=== PATIENT | female | born 1990 | race Caucasian/White ===

== ENCOUNTER 2018-10-20 07:49 | Emergency (ER) | payer OTHER ==
[2018-10-20] MEDS ORDERED: NA CHLORIDE 0.9% 1,000 ML ONE (08:47)
[2018-10-20 08:52] LABS: Absolute Lymphocytes (CBC) 1.7 K/uL (0.7-4.9); Basophils % 0.5 % (0-1.3); Eosinophils % 4.2 % (0-4.4); Hematocrit 39.2 % (36.0-45.0); Lymphocytes % 23.2 % (15.3-44.8); MPV 9.1 fL (7.6-11.3); Monocytes % 4.9 % (3.3-12.3); RBC Red Blood Cell Count 4.44 M/uL (3.86-4.86)
[2018-10-20] MEDS ORDERED: FENTANYL CITR 100 MCG/2 ML ONE (08:53)
[2018-10-20 09:05] LABS: ALT/SGPT 33 U/L (12-78); AST/SGOT 22 U/L (15-37); Albumin 3.7 g/dL (3.4-5.0); Alkaline Phosphatase 89 U/L (45-117); BUN Blood Urea Nitrogen 15 mg/dL (7-18); Bicarbonate 25 mmol/L (21-32); Bilirubin Direct < 0.1 mg/dL (0-0.2); Bilirubin Total 0.2 mg/dL (0.2-1.0); Glucose Level 110 mg/dL (74-106); Lipase 167 U/L (73-393); Potassium 3.5 mmol/L (3.5-5.1); Protein, Total 7.4 g/dL (6.4-8.2); Sodium Level 140 mmol/L (136-145)
[2018-10-20 09:06] LABS: Urine Blood 2+ (NEG); Urine Glucose NEGATIVE (NEG); Urine Protein NEGATIVE (NEG); Urine Specific Gravity <1.005 (1.005-1.030)
--- NOTE | 2018-10-20 09:46 | RAD REPORT ---
EXAM DESCRIPTION: CT - Stone Protocol - 10/20/2018 9:19 am CLINICAL HISTORY: Right-sided back and flank pain COMPARISON: None. TECHNIQUE: Axial 5 mm thick images were obtained without oral or IV contrast. The [id number] span s the entirety of the system including uppermost abdomen and lung bases. All CT scans are performed using dose optimization technique as appropriate and may include automated exposure control or mA/KV adjustment according to patient size. FINDINGS: Mild right-sided hydronephrosis is present secondary to a 6 mm right UPJ calculus. There i s stranding in the fatty tissues surrounding this portion of the ureter. No other obstructing or nono bstructing calculi on the right. No left-sided hydronephrosis or left-sided calculi. No bladder calcu li seen. No suspicious renal masses. Isodense masses and pyelonephritis are not excluded on a stone p rotocol CT scan. No urinary bladder suspicious finding. No significant adrenal finding. Imaged portions of the liver, spleen and pancreas show no suspicious findings on non-contrast imaging . No gallbladder or biliary tree abnormality identified. No suspicious bowel findings. Uterus and ovaries show no suspicious findings. No hernia, mass or bulky lymphadenopathy noted. No free air, free fluid or inflammatory stranding. No significant bony abnormality. IMPRESSION: Mild right-sided hydronephrosis secondary to a 6 mm UPJ calculus. On a KUB projection, the obstructing stone should be in close proximity to the L3 right transverse pr ocess tip. Isodense masses and pyelonephritis are not excluded on stone protocol technique.
--- NOTE | 2018-10-20 10:19 | EDPHYS ---
Physician Documentation [facility] Name: Maira Scherer Age: 28 yrs Sex: Female : 1990 Arrival Date: 10/20/2018 Time: 07:50 Bed 8 Private MD: Mario Lizarraga C ED Physician Petar Goetz HPI: 10/20 08:36 This 28 yrs old Female presents to ER via Ambulatory with complaints of Flank snw Pain. 08:36 The patient complains of pain in the right mid back. The pain does not radiate. Onset: snw The symptoms/episode began/occurred suddenly, at 05:00, and became persistent. Associated signs and symptoms: The patient has no apparent associated signs or symptoms. Severity of pain: At its worst the pain was moderate severe. The patient has not experienced similar symptoms in the past. The patient has not recently seen a physician. 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 - Social history:: Smoking status: Patient/guardian denies using tobacco. - Ebola Screening: : Patient negative for fever greater than or equal to 101.5 degrees Fahrenheit, and additional compatible Ebola Virus Disease symptoms Patient denies exposure to infectious person Patient denies travel to an Ebola-affected area in the 21 days before illness onset No symptoms or risks identified at this time. ROS: 08:36 Constitutional: Negative for fever, chills, and weight loss, Eyes: Negative for injury, snw pain, redness, and discharge, ENT: Negative for injury, pain, and discharge, Neck: Negative for injury, pain, and swelling, Cardiovascular: Negative for chest pain, palpitations, and edema, Respiratory: Negative for shortness of breath, cough, wheezing, and pleuritic chest pain, Abdomen/GI: Negative for abdominal pain, nausea, vomiting, diarrhea, and constipation, : Negative for injury, bleeding, discharge, and swelling, MS/Extremity: Negative for injury and deformity, Skin: Negative for injury, rash, and discoloration, Neuro: Negative for headache, weakness, numbness, tingling, and seizure. 08:36 Back: Positive for flank pain, on the right. Exam: 08:36 Constitutional: This is a well developed, well nourished patient who is awake, alert, snw and in no acute distress. Head/Face: Normocephalic, atraumatic. Eyes: Pupils equal round and reactive to light, extra-ocular motions intact. Lids and lashes normal. Conjunctiva and sclera are non-icteric and not injected. Cornea within normal limits. Periorbital areas with no swelling, redness, or edema. ENT: Nares patent. No nasal discharge, no septal abnormalities noted. Tympanic membranes are normal and external auditory canals are clear. Oropharynx with no redness, swelling, or masses, exudates, or evidence of obstruction, uvula midline. Mucous membranes moist. Neck: Trachea midline, no thyromegaly or masses palpated, and no cervical lymphadenopathy. Supple, full range of motion without nuchal rigidity, or vertebral point tenderness. No Meningismus. Chest/axilla: Normal chest wall appearance and motion. Nontender with no deformity. No lesions are appreciated. 08:36 Respiratory: Lungs have equal breath sounds bilaterally, clear to auscultation and percussion. No rales, rhonchi or wheezes noted. No increased work of breathing, no retractions or nasal flaring. Abdomen/GI: Soft, non-tender, with normal bowel sounds. No distension or tympany. No guarding or rebound. No evidence of tenderness throughout. Skin: Warm, dry with normal turgor. Normal color with no rashes, no lesions, and no evidence of cellulitis. MS/ Extremity: Pulses equal, no cyanosis. Neurovascular intact. Full, normal range of motion. Neuro: Awake and alert, GCS 15, oriented to person, place, time, and situation. Cranial nerves II-XII grossly intact. Motor strength 5/5 in all extremities. Sensory grossly intact. Cerebellar exam normal. Normal gait. 08:36 Cardiovascular: Rate: tachycardic, Rhythm: regular, Pulses: no pulse deficits are appreciated, Heart sounds: normal. 08:36 Back: pain, that is moderate, that is severe, of the right mid back, normal spinal alignment noted, CVA tenderness, is absent, muscle spasm, is not present. Vital Signs: 08:10 BP 128 / 76; Pulse 78; Resp 16; Pulse Ox 100% on R/A; Weight 97.52 kg; Height 5 ft. 4 iw in. (162.56 cm); Pain 8/10; 09:10 Pain 4/10; sv 09:30 BP 112 / 65; Pulse 63; Resp 16 S; Pulse Ox 100% on R/A; sg 10:01 BP 108 / 64; Pulse 56; Resp 16; Pulse Ox 100% ; sv 08:10 Body Mass Index 36.90 (97.52 kg, 162.56 cm) iw MDM: 08:18 Patient medically screened. snw 10:16 Data reviewed: vital signs, nurses notes. Data interpreted: Pulse oximetry: on room air snw is 100 %. Interpretation: normal. Counseling: I had a detailed discussion with the patient and/or guardian regarding: the historical points, exam findings, and any diagnostic results supporting the discharge/admit diagnosis, lab results, radiology results, the need for outpatient follow up, to return to the emergency department if symptoms worsen or persist or if there are any questions or concerns that arise at home. Response to treatment: the patient's symptoms have markedly improved after treatment. Physician consultation:. Physician consultation: Leandro Hadley MD was called at 10:00, was contacted at 10:00, regarding consult, patient's condition, need to evaluate the patient as soon as possible, would like medications started, toradol 10mg TID, T#3 2 po q 4h, f/u next week. 10/20 08:15 Order name: Urine Dipstick--Ancillary (enter results); Complete Time: 09:08 ag 10/20 08:20 Order name: Basic Metabolic Panel; Complete Time: 09:08 snw 10/20 08:20 Order name: CBC with Diff; Complete Time: 08:55 snw 10/20 08:20 Order name: Creatinine for Radiology; Complete Time: : snw 10/20 08:20 Order name: Hepatic Function; Complete Time: 09:08 snw 10/20 08:20 Order name: Lipase; Complete Time: 09:08 snw 10/20 08:20 Order name: Labs collected and sent; Complete Time: 08:27 snw 10/20 08:20 Order name: Test, Serum; Complete Time: 08:54 snw 10/20 08:55 Order name: CT Stone Protocol; Complete Time: 09:56 snw Administered Medications: 08:37 Drug: NS 0.9% 1000 ml Route: IV; Rate: 1 bolus; Site: right antecubital; sv 09:30 Follow up: Response: No adverse reaction; IV Status: Completed infusion; IV Intake: sv 1000ml 08:42 Drug: fentaNYL (PF) 25 mcg Route: IVP; Site: right antecubital; sv 09:10 Follow up: Pain 10 Adult; Response: No adverse reaction; Pain is decreased sv Disposition: 18:52 Co-signature as Attending Physician, Petar Goetz MD. I agree with the assessment and kdr plan of care. Disposition: 10/20/18 10:19 Discharged to Home. Impression: Hydronephrosis with renal and ureteral calculous obstruction. - Condition is Stable. - Discharge Instructions: Kidney Stones, Hydronephrosis, Dietary Guidelines to Help Prevent Kidney Stones, Rehydration, Adult. - Prescriptions for Tylenol- Codeine #3 300-30 mg Oral Tablet - take 2 tablets by ORAL route every 6 hours As needed; 30 tablet. Flomax 0.4 mg Oral Capsule, Sust. Release 24 hr - take 1 capsule by ORAL route once daily 1/2 hour following the same meal each day; 30 capsule. Cipro 500 mg Oral Tablet - take 1 tablet by ORAL route every 12 hours for 7 days; 14 tablet. Diclofenac Sodium 75 mg Oral Tablet Sustained Release - take 1 tablet by ORAL route 2 times per day; 30 tablet. promethazine 25 mg Oral Tablet - take 1 tablet by ORAL route every 6 hours As needed; 20 tablet. - Medication Reconciliation Form, Thank You Letter, Antibiotic Education, Prescription Opioid Use form. - Follow up: Mario Lizarraga MD; When: As needed; Reason: Recheck today's complaints, Continuance of care, Re-evaluation by your physician. Follow up: Leandro Hadley MD; When: 2 - 3 days; Reason: Recheck today's complaints, Continuance of care. Signatures: Dispatcher [employer] Shelly Braun RN RN sv Rittger, Kevin, MD MD kdr Therrien, Shelly, MANAGER TRUCK-C MANAGER TRUCK-Csnw Ruby Joyce RN RN iw Corrections: (The following items were deleted from the chart) 10:38 10:19 10/20/2018 10:19 Discharged to Home. Impression: Hydronephrosis with renal and sv ureteral calculous obstruction. Condition is Stable. Forms are Medication Reconciliation Form, Thank You Letter, Antibiotic Education, Prescription Opioid Use. Follow up: Mario Lizarraga; When: As needed; Reason: Recheck today's complaints, Continuance of care, Re-evaluation by your physician. Follow up: Leandro Hadley; When: 2 - 3 days; Reason: Recheck today's complaints, Continuance of care. snw
--- NOTE | 2018-10-20 10:19 | ER ---
Nurse's Notes [facility] Name: Maira Scherer Age: 28 yrs Sex: Female : 1990 Arrival Date: 10/20/2018 Time: 07:50 Bed 8 Private MD: Mario Lizarraga C Diagnosis: Hydronephrosis with renal and ureteral calculous obstruction Presentation: 10/20 08:06 Presenting complaint: Patient states: sharp pain to right mid back that woke her up out iw of her sleep at 5 am. also had diarrhea, denies vomiting , denies pain/burning with urination, denies blood in urine. Transition of care: patient was not received from another setting of care. Onset of symptoms was October 20, 2018. Risk Assessment: Do you want to hurt yourself or someone else? Patient reports no desire to harm self or others. Initial Sepsis Screen: Does the patient meet any 2 criteria? No. Patient's initial sepsis screen is negative. Does the patient have a suspected source of infection? No. Patient's initial sepsis screen is negative. Care prior to arrival: None. 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 - Social history:: Smoking status: Patient/guardian denies using tobacco. - Ebola Screening: : Patient negative for fever greater than or equal to 101.5 degrees Fahrenheit, and additional compatible Ebola Virus Disease symptoms Patient denies exposure to infectious person Patient denies travel to an Ebola-affected area in the 21 days before illness onset No symptoms or risks identified at this time. Screenin:30 Abuse screen: Denies threats or abuse. Denies injuries from another. Nutritional sv screening: No deficits noted. Tuberculosis screening: No symptoms or risk factors identified. Fall Risk None identified. Assessment: 08:30 General: Appears in no apparent distress. uncomfortable, well groomed, well developed, sv Behavior is calm, cooperative, appropriate for age. Pain: Complains of pain in right mid back Pain currently is 8 out of 10 on a pain scale. Quality of pain is described as stabbing, Is continuous. Neuro: Level of Consciousness is awake, alert, obeys commands, Oriented to person, place, time, situation, Moves all extremities. Full function Speech is normal. Respiratory: Airway is patent Respiratory effort is even, unlabored, Respiratory pattern is regular, symmetrical. Derm: Skin is pink, warm \T\ dry. Musculoskeletal: Range of motion: intact in all extremities. 09:20 Reassessment: Patient appears in no apparent distress at this time. Patient and/or sv family updated on plan of care and expected duration. Pain level reassessed. Patient is alert, oriented x 3, equal unlabored respirations, skin warm/dry/pink. 10:36 Reassessment: Patient appears in no apparent distress at this time. Patient and/or sv family updated on plan of care and expected duration. Pain level reassessed. Patient is alert, oriented x 3, equal unlabored respirations, skin warm/dry/pink. Patient states symptoms have improved. Vital Signs: 08:10 BP 128 / 76; Pulse 78; Resp 16; Pulse Ox 100% on R/A; Weight 97.52 kg; Height 5 ft. 4 iw in. (162.56 cm); Pain 8/10; 09:10 Pain 4/10; sv 09:30 BP 112 / 65; Pulse 63; Resp 16 S; Pulse Ox 100% on R/A; sg 10:01 BP 108 / 64; Pulse 56; Resp 16; Pulse Ox 100% ; sv 08:10 Body Mass Index 36.90 (97.52 kg, 162.56 cm) iw ED Course: 07:50 Patient arrived in ED. as 07:50 Mario Lizarraga MD is Private Physician. as 07:51 Maira Mar FNP-C [facility]. snw 07:51 Petar Goetz MD is Attending Physician. snw 08:08 Triage completed. iw 08:11 Arm band placed on. iw 08:13 Urine collected: clean catch specimen, clear, rhonda colored. jb1 08:27 Initial lab(s) drawn, by dc, sent to lab. Inserted saline lock: 22 gauge in right jb1 antecubital area, using aseptic technique. Blood collected. 08:30 Velma, Shelly, RN is Primary Nurse. sv 08:30 Patient has correct armband on for positive identification. Bed in low position. Call sv light in reach. Side rails up X 1. Pulse ox on. NIBP on. Door closed. Warm blanket given. Head of bed elevated. 08:47 Awaiting lab results. sv 09:[address] via wheelchair. sv 09:19 CT Stone Protocol In Process Unspecified. EDMS 10:18 Mario Lizarraga MD is Referral Physician. snw 10:18 Leandro Hadley MD is Referral Physician. snw 10:37 No provider procedures requiring assistance completed. IV discontinued, intact, sv bleeding controlled, No redness/swelling at site. Pressure dressing applied. Administered Medications: 08:37 Drug: NS 0.9% 1000 ml Route: IV; Rate: 1 bolus; Site: right antecubital; sv 09:30 Follow up: Response: No adverse reaction; IV Status: Completed infusion; IV Intake: sv 1000ml 08:42 Drug: fentaNYL (PF) 25 mcg Route: IVP; Site: right antecubital; sv 09:10 Follow up: Pain 4/10 Adult; Response: No adverse reaction; Pain is decreased sv Intake: 09:30 IV: 1000ml; Total: 1000ml. sv Outcome: 10:19 Discharge ordered by . snw 10:37 Discharged to home ambulatory, with family. sv 10:37 Condition: stable 10:37 Discharge instructions given to patient, family, Instructed on discharge instructions, follow up and referral plans. no drinking with medication, no driving heavy equipment, medication usage, increase fluid intake Demonstrated understanding of instructions, follow-up care, medications, increase fluid intake Prescriptions given X x5 10:38 Patient left the ED. sv Signatures: Dispatcher [employer] EDIA Mohamud Richard jb1 Shelly Carreon, RN Mac Lea RN RN sg Maira Mar, WATER METER INSTALLER-C WATER METER INSTALLER-Margarita Carmen Irene, RN RN iw
== END 2018-10-20 10:38 | disposition home or self-care (01) ==
LOC: ER 07:49
DX: N13.2 Hydronephrosis with renal and ureteral calculous obstruction (principal); Z88.7 Allergy status to serum and vaccine
CPT/HCPCS: 36415; 74176; 76377; 80048; 80076; 81003; 83690; 84703; 85025; 96361; 96374; 99284; J3010; J7030

== ENCOUNTER 2018-10-21 09:57 | Emergency (ER) | payer OTHER ==
--- NOTE | 2018-10-21 10:47 | RAD REPORT ---
EXAM DESCRIPTION: RAD - Chest Pa And Lat (2 Views) - 10/21/2018 10:35 am CLINICAL HISTORY: pre op Chest pain. COMPARISON: Abdomen 1 View (KUB) dated 10/21/2018; CHEST PA AND LAT 2 VIEW dated 03/17/2014 FINDINGS: The lungs are clear. The heart is normal in size. No displaced fractures. IMPRESSION: No acute or concerning finding suspected.
[2018-10-21] MEDS ORDERED: PROMETHAZINE 25 MG/ML VIAL ONE (10:54)
[2018-10-21] MEDS ORDERED: NA CHLORIDE 0.9% 1,000 ML ONE (10:55)
[2018-10-21] MEDS ORDERED: FENTANYL CITR 100 MCG/2 ML ONE (10:55)
[2018-10-21 11:04] LABS: Absolute Lymphocytes (CBC) 2.2 K/uL (0.7-4.9); Basophils % 0.3 % (0-1.3); Eosinophils % 2.1 % (0-4.4); Hematocrit 38.2 % (36.0-45.0); Lymphocytes % 23.4 % (15.3-44.8); MPV 8.9 fL (7.6-11.3); Monocytes % 5.8 % (3.3-12.3); RBC Red Blood Cell Count 4.29 M/uL (3.86-4.86)
--- NOTE | 2018-10-21 11:09 | ER ---
Nurse's Notes [facility] Name: Maira Scherer Age: 28 yrs Sex: Female : 1990 Arrival Date: 10/21/2018 Time: 09:59 Bed 5 Private MD: Mario Lizarraga C Diagnosis: Kidney stone Presentation: 10/21 10:04 Presenting complaint: Patient states: I have a 6mm stone on the right, I went to Dr. thuan Bonner office today and he gave me orders pre-op stuff and while I was waiting over there my pain got worse and I almost passed out. Pt scheduled for lithotripsy on Wednesday with Dr. Hadley. Transition of care: patient was not received from another setting of care. Onset of symptoms was October 21, 2018. Risk Assessment: Do you want to hurt yourself or someone else? Patient reports no desire to harm self or others. Initial Sepsis Screen: Does the patient meet any 2 criteria? No. Patient's initial sepsis screen is negative. Does the patient have a suspected source of infection? No. Patient's initial sepsis screen is negative. Care prior to arrival: None. 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 - Social history:: Smoking status: Patient/guardian denies using tobacco. - Ebola Screening: : No symptoms or risks identified at this time. Screenin:08 Abuse screen: Denies threats or abuse. Denies injuries from another. Nutritional ph screening: No deficits noted. Tuberculosis screening: No symptoms or risk factors identified. Fall Risk None identified. Assessment: 10:30 General: Appears in no apparent distress. comfortable, well groomed, Behavior is calm, ph cooperative, appropriate for age, Denies fever, feeling ill. Pain: Complains of pain in right low back. Neuro: Level of Consciousness is awake, alert, obeys commands, Oriented to person, place, time, situation, Reports dizziness, PATTERN CLEANER. Cardiovascular: Capillary refill < 3 seconds in bilateral fingers Patient's skin is warm and dry. Respiratory: Airway is patent Respiratory effort is even, unlabored. GI: Abdomen is round non-distended, Bowel sounds present X 4 quads. Abd is soft and non tender X 4 quads. Patient currently denies abdominal pain, nausea, vomiting. : Urine is clear. Derm: Skin is intact, is healthy with good turgor, Skin is pink, warm \T\ dry. Musculoskeletal: Circulation, motion, and sensation intact. Range of motion: intact in all extremities. 11:00 Reassessment: Patient appears in no apparent distress at this time. Dr Hadley at bedside ph who prescribed pt norco for pain control and plans to do procedure next week, pt to be d/c. Vital Signs: 10:06 BP 117 / 66; Pulse 55; Resp 16; Temp 97.5; Pulse Ox 98% on R/A; Weight 97.52 kg; Height la1 5 ft. 4 in. (162.56 cm); 11:30 BP 122 / 64; Pulse 57; Resp 18; Temp 98.0; Pulse Ox 99% on R/A; ph 10:06 Body Mass Index 36.90 (97.52 kg, 162.56 cm) la1 ED Course: 09:59 Patient arrived in ED. as 10:01 Mario Lizarraga MD is Private Physician. as 10:06 Triage completed. la1 10:06 Maira Mar FNP-C [facility]. snw 10:06 J Carlos Jones MD is Attending Physician. snw 10:07 Chelle Willis, TALIB is Primary Nurse. ph 10:07 Arm band placed on left wrist. la1 10:32 X-ray completed. Patient tolerated procedure well. Patient moved back from radiology. ml 10:34 Chest Pa And Lat (2 Views) XRAY In Process Unspecified. EDMS 10:35 Patient has correct armband on for positive identification. Bed in low position. Call ph light in reach. Side rails up X 1. Pulse ox on. NIBP on. 10:50 Inserted saline lock: 20 gauge in left antecubital area, using aseptic technique. Blood ph collected. 11:06 Leandro Hadley MD is Referral Physician. snw 11:10 EKG done, by milieu technician. reviewed by Maira HAIDER. tc 11:53 No provider procedures requiring assistance completed. IV discontinued, intact, ph bleeding controlled, No redness/swelling at site. Pressure dressing applied. Administered Medications: 10:55 Drug: NS 0.9% 1000 ml Route: IV; Rate: 1 bolus; Site: left antecubital; ph 11:51 Follow up: Response: No adverse reaction; IV Status: Completed infusion; IV Intake: ph 1000ml 10:55 Drug: fentaNYL (PF) 25 mcg Route: IVP; Site: left antecubital; ph 11:52 Follow up: Response: No adverse reaction; Pain is decreased ph 11:51 Not Given (Patient Refused; Took PATTERN CLEANER): Phenergan 6.25 mg IVP once ph Intake: 11:51 IV: 1000ml; Total: 1000ml. ph Outcome: 11:07 Discharge ordered by . snw 11:53 Discharged to home ambulatory, with family. ph 11:53 Condition: improved 11:53 Discharge instructions given to patient, family, Instructed on discharge instructions, follow up and referral plans. Demonstrated understanding of instructions, follow-up care. 11:54 Patient left the ED. ph Signatures: Dispatcher [employer] EDMS Maira Mar, RADIO HOST-C RADIO HOST-Csnw Margarita Eldridge Melissa ml Callis, Tiffany, bottom stainer EKG Ttc Mohan Matamoros RN RN laChelle Hendrickson RN RN ph
--- NOTE | 2018-10-21 11:09 | EDPHYS ---
Physician Documentation [facility] Name: Maira Scherer Age: 28 yrs Sex: Female : 1990 Arrival Date: 10/21/2018 Time: 09:59 Bed 5 Private MD: Mario Lizarraga C ED Physician J Carlos Jones HPI: 10/21 10:45 This 28 yrs old Female presents to ER via Ambulatory with complaints of snw Dizziness, Possible Kidney Stone. 10:45 The patient presents with feeling faint. Onset: The symptoms/episode began/occurred snw suddenly, yesterday, and became worse this morning, and became persistent. Context: occurred between trips from hospital and Dr. Hadley's office. Modifying factors: the symptoms are aggravated by flank pain, medications for kidney stone. Associated signs and symptoms: Pertinent positives: nausea, near-syncope. Severity of symptoms: At their worst the symptoms were moderate in the emergency department the symptoms are unchanged. Patient's baseline: Neuro: alert and fully oriented, Motor: no deficits, Ambulation: walks without assistance. The patient has not experienced similar symptoms in the past. The patient has been recently seen by a physician: The patient has been recently seen at the [facility] Emergency Department, yesterday, dx with 6mm stone yesterday, . 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 - Social history:: Smoking status: Patient/guardian denies using tobacco. - Ebola Screening: : No symptoms or risks identified at this time. ROS: 10:42 Eyes: Negative for injury, pain, redness, and discharge, ENT: Negative for injury, snw pain, and discharge, Neck: Negative for injury, pain, and swelling, Cardiovascular: Negative for chest pain, palpitations, and edema, Respiratory: Negative for shortness of breath, cough, wheezing, and pleuritic chest pain, Abdomen/GI: Negative for abdominal pain, nausea, vomiting, diarrhea, and constipation, : Negative for injury, bleeding, discharge, and swelling, MS/Extremity: Negative for injury and deformity, Skin: Negative for injury, rash, and discoloration, Neuro: Negative for headache, weakness, numbness, tingling, and seizure. 10:42 Constitutional: Positive for malaise, near syncope. 10:42 Back: Positive for flank pain, on the right. Exam: 10:42 Constitutional: This is a well developed, well nourished patient who is awake, alert, snw and pale. + right flank pain Head/Face: Normocephalic, atraumatic. Eyes: Pupils equal round and reactive to light, extra-ocular motions intact. Lids and lashes normal. Conjunctiva and sclera are non-icteric and not injected. Cornea within normal limits. Periorbital areas with no swelling, redness, or edema. ENT: Nares patent. No nasal discharge, no septal abnormalities noted. Tympanic membranes are normal and external auditory canals are clear. Oropharynx with no redness, swelling, or masses, exudates, or evidence of obstruction, uvula midline. Mucous membranes moist. Neck: Trachea midline, no thyromegaly or masses palpated, and no cervical lymphadenopathy. Supple, full range of motion without nuchal rigidity, or vertebral point tenderness. No Meningismus. Chest/axilla: Normal chest wall appearance and motion. Nontender with no deformity. No lesions are appreciated. Cardiovascular: Regular rate and rhythm with a normal S1 and S2. No gallops, murmurs, or rubs. Normal PMI, no JVD. No pulse deficits. Respiratory: Lungs have equal breath sounds bilaterally, clear to auscultation and percussion. No rales, rhonchi or wheezes noted. No increased work of breathing, no retractions or nasal flaring. Abdomen/GI: Soft, non-tender, with normal bowel sounds. No distension or tympany. No guarding or rebound. No evidence of tenderness throughout. Skin: Warm, dry with normal turgor. Pale color with no rashes, no lesions, and no evidence of cellulitis. MS/ Extremity: Pulses equal, no cyanosis. Neurovascular intact. Full, normal range of motion. Neuro: Awake and alert, GCS 15, oriented to person, place, time, and situation. Cranial nerves II-XII grossly intact. Motor strength 5/5 in all extremities. Sensory grossly intact. Cerebellar exam normal. Normal gait. Psych: Awake, alert, with orientation to person, place and time. Behavior, mood, and affect are within normal limits. 10:42 Back: pain, that is moderate, that is severe, of the right low back, CVA tenderness, is absent, muscle spasm, is not present. Vital Signs: 10:06 BP 117 / 66; Pulse 55; Resp 16; Temp 97.5; Pulse Ox 98% on R/A; Weight 97.52 kg; Height la1 5 ft. 4 in. (162.56 cm); 11:30 BP 122 / 64; Pulse 57; Resp 18; Temp 98.0; Pulse Ox 99% on R/A; ph 10:06 Body Mass Index 36.90 (97.52 kg, 162.56 cm) la1 MDM: 10:09 Patient medically screened. snw 11:09 Data reviewed: vital signs, nurses notes. Data interpreted: Pulse oximetry: on room air snw is 98 %. Interpretation: normal. Counseling: I had a detailed discussion with the patient and/or guardian regarding: the historical points, exam findings, and any diagnostic results supporting the discharge/admit diagnosis, the need for outpatient follow up. Physician consultation: Leandro Hadley MD was called at 10:52, was contacted at 10:52, regarding consult, patient's condition, and will see patient in ED, shortly. 11:10 ED course: Pt declines stent, risks and benefits discussed by Dr. Hadley. Pt declines. snw Dr. Hadley instructed pt to return to ED prn but she would at that time require admission for stent placement. 10/21 10:08 Order name: Basic Metabolic Panel; Complete Time: 11:23 snw 10/21 10:08 Order name: CBC with Diff; Complete Time: 11:12 snw 10/21 10:17 Order name: Urine Culture [facility] 10/21 10:17 Order name: Urine Microscopic Only [facility] 10/21 10:08 Order name: Labs collected and sent; Complete Time: 11:26 snw 10/21 10:17 Order name: EKG; Complete Time: 10:18 w 10/21 10:20 Order name: Chest Pa And Lat (2 Views) XRAY; Complete Time: 10:52 [facility] 10/21 11:15 Order name: Urine Dipstick--Ancillary (enter results) em1 10/21 11:15 Order name: Urine --Ancillary (enter results) em1 10/21 10:08 Order name: NPO; Complete Time: 10:26 [facility] 10/21 10:08 Order name: consult Order-Leandro Hadley MD (Urology) [facility] 10/21 10:17 Order name: Urine Dipstick-Ancillary (obtain specimen); Complete Time: 11:11 [facility] 10/21 10:17 Order name: EKG - Nurse/Tech; Complete Time: 11:26 [facility] 10/21 11:15 Order name: Urine Test (obtain specimen); Complete Time: 11:15 em1 Administered Medications: 10:55 Drug: NS 0.9% 1000 ml Route: IV; Rate: 1 bolus; Site: left antecubital; ph 11:51 Follow up: Response: No adverse reaction; IV Status: Completed infusion; IV Intake: ph 1000ml 10:55 Drug: fentaNYL (PF) 25 mcg Route: IVP; Site: left antecubital; ph 11:52 Follow up: Response: No adverse reaction; Pain is decreased ph 11:51 Not Given (Patient Refused; Took VISUAL MERCHANDISING ASSOCIATE): Phenergan 6.25 mg IVP once ph Disposition: 12:09 Co-signature as Attending Physician, J Carlos Jones MD. rn Disposition: 10/21/18 11:07 Discharged to Home. Impression: Kidney stone. - Condition is Stable. - Discharge Instructions: Kidney Stones, Dietary Guidelines to Help Prevent Kidney Stones. - Medication Reconciliation Form, Thank You Letter, Antibiotic Education, Prescription Opioid Use form. - Follow up: Leandro Hadley MD; When: as scheduled; Reason: Recheck today's complaints, Continuance of care, Re-evaluation by your physician. - Notes: Medications as directed per Dr. Hadley Signatures: Dispatcher [employer] EDMS Maira Mar, ACTIVITIES OFFICER-C ACTIVITIES OFFICER-Csnw J Carlos Jones MD MD rn Martinez, Eric em1 Mohan Matamoros RN RN laChelle Hendrickson RN RN ph Corrections: (The following items were deleted from the chart) 11:54 11:07 10/21/2018 11:07 Discharged to Home. Impression: Kidney stone. Condition is ph Stable. Forms are Medication Reconciliation Form, Thank You Letter, Antibiotic Education, Prescription Opioid Use. Follow up: Philmore Jomar; When: as scheduled; Reason: Recheck today's complaints, Continuance of care, Re-evaluation by your physician. snw
[2018-10-21 11:21] LABS: Potassium 3.7 mmol/L (3.5-5.1)
[2018-10-21 12:04] LABS: Urine Bacteria >50 /HPF (<20); Urine Culture Reflex Order NOT NEEDED; Urine RBC 20-50 /HPF (NONE SEEN)
[2018-10-21 13:18] LABS: Urine Blood 2+ (NEG); Urine Glucose NEGATIVE (NEG); Urine Protein 1+ (NEG); Urine Specific Gravity >1.030 (1.005-1.030)
--- NOTE | 2018-10-21 15:01 | EKG ---
Test Date: 2018-10-21 Test Time: 11:03:10 Home Care Physical Therapist: KADE MEASUREMENT RESULTS: Intervals: Rate: 50 ID: [id number] QRSD: 82 QT: 434 QTc: 395 [place]: P: 29 ID: [id number] QRS: 44 T: 54 INTERPRETIVE STATEMENTS: Sinus bradycardia with sinus arrhythmia Otherwise normal ECG No previous ECG available for comparison Electronically Signed On 10-21-18 15:00:44 CDT by Esequiel Coffey
== END 2018-10-21 11:54 | disposition home or self-care (01) ==
LOC: ER 09:57
DX: N20.0 Calculus of kidney (principal)
CPT/HCPCS: 36415; 71046; 80048; 81003; 81015; 81025; 85025; 87086; 87088; 93005; 96361; 96374; 99284; J2550; J3010; J7030

== ENCOUNTER 2018-10-25 13:04 | Emergency (ER) | payer OTHER ==
[2018-10-25 13:43] LABS: Absolute Lymphocytes (CBC) 0.7 K/uL (0.7-4.9); Basophils % 0.3 % (0-1.3); Hematocrit 41.6 % (36.0-45.0); MPV 9.4 fL (7.6-11.3); Monocytes % 1.2 % (3.3-12.3)
[2018-10-25 14:05] LABS: ALT/SGPT 37 U/L (12-78); AST/SGOT 30 U/L (15-37); Albumin 3.7 g/dL (3.4-5.0); Alkaline Phosphatase 94 U/L (45-117); BUN Blood Urea Nitrogen 14 mg/dL (7-18); Bicarbonate 24 mmol/L (21-32); Bilirubin Direct < 0.1 mg/dL (0-0.2); Bilirubin Total 0.2 mg/dL (0.2-1.0); Glucose Level 174 mg/dL (74-106); Lipase 109 U/L (73-393); Potassium 3.6 mmol/L (3.5-5.1); Protein, Total 7.8 g/dL (6.4-8.2); Sodium Level 135 mmol/L (136-145)
--- NOTE | 2018-10-25 14:10 | RAD REPORT ---
EXAM DESCRIPTION: CT - Stone Protocol - 10/25/2018 1:48 pm CLINICAL HISTORY: Severe abdominal pain, recent placement of a right ureteral stent due to a uretera l calculus. COMPARISON: CT examination October 20. TECHNIQUE: Axial 5 mm thick images were obtained without oral or IV contrast. The [id number] span s the entirety of the system partially obscuring uppermost abdomen and lung bases. All CT scans are performed using dose optimization technique as appropriate and may include automated exposure control or mA/KV adjustment according to patient size. FINDINGS: Since prior imaging a double pigtail stent has been placed into the right collecting syste m. Distal pigtail is adjacent to the right UVJ. Urinary bladder is contracted. No calculus in the bud dder. Previously detailed UPJ calculus is no longer identifiable and presumed to have passed or been removed. This stone is not seen along the course of the stent and has not been displaced retrograde i nto the pelvis or calices. Hydronephrosis of the pelvis and calices similar to the prior study. No left-sided hydronephrosis. No left-sided calculi. No suspicious renal masses. Isodense masses and pyelonephritis are not excluded on a stone protocol CT scan. No significant adrenal finding. Imaged portions of the liver, spleen and pancreas show no suspicious findings on non-contrast imaging . No gallbladder or biliary tree abnormality identified. No suspicious bowel findings. No hernia, mass or bulky lymphadenopathy noted. No free air, free fluid or inflammatory stranding. No significant bony abnormality. IMPRESSION: Right ureteral stent is in place appearing to be in good position. The obstructing UPJ calculus detailed October [address] imaging is no longer identifiable. This may have bee n extracted or has passed since October 20. Dilatation of the right renal pelvis and calices similar to October 20. Isodense masses and pyelonephritis are not excluded on stone protocol technique.
[2018-10-25 14:14] LABS: Platelet Estimate ADEQ; Urine White Blood Cell Casts OK
[2018-10-25 14:15] LABS: Blood Morphology Comment NOT SEEN (NOT SEEN)
[2018-10-25] MEDS ORDERED: KETOROLAC 30 MG/ML INJ ONE (15:00)
--- NOTE | 2018-10-25 15:08 | ER ---
Nurse's Notes [facility] Name: Maira Scherer Age: 28 yrs Sex: Female : 1990 Arrival Date: 10/25/2018 Time: 13:05 Bed 17 Private MD: Diagnosis: Other acute postprocedural pain Presentation: 10/25 13:10 Presenting complaint: Patient states: Dr. Hadley placed a stent on me this morning at the surgery center and now the pain is so bad and been vomiting; took all the pain meds Rx and its not helping; pain is 10/10 on the R [facility] area;. Transition of care: patient was not received from another setting of care. Onset of symptoms was October 25, 2018. Risk Assessment: Do you want to hurt yourself or someone else? Patient reports no desire to harm self or others. Initial Sepsis Screen: Does the patient meet any 2 criteria? No. Patient's initial sepsis screen is negative. Does the patient have a suspected source of infection? No. Patient's initial sepsis screen is negative. Care prior to arrival: None. 13:10 Method Of Arrival: Ambulatory 13:10 Acuity: COLLIN 3 Triage Assessment: 13:30 General: Appears in no apparent distress. uncomfortable, obese, Behavior is bp cooperative, appropriate for age, anxious. Pain: Complains of pain in right flank. EENT: No deficits noted. Neuro: No deficits noted. Cardiovascular: No deficits noted. Respiratory: No deficits noted. GI: Reports Pain is 10 out of 10 on a pain scale. : Reports pain in right flank(s). Derm: No deficits noted. Musculoskeletal: No deficits noted. 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 - Social history:: Smoking status: Patient/guardian denies using tobacco, The patient lives at home. - Ebola Screening: : No symptoms or risks identified at this time. Screenin:32 Abuse screen: Denies threats or abuse. Denies injuries from another. Nutritional bp screening: No deficits noted. Tuberculosis screening: No symptoms or risk factors identified. Fall Risk None identified. Assessment: 13:30 General: SEE TRIAGE NOTE. bp 13:30 GI: Bowel sounds present X 4 quads. Abd is soft X 4 quads. bp 14:06 Reassessment: PT RETURNED FROM CT. PT DECLINED TO PROVIDE UOP AT THIS TIME. bp 15:24 Reassessment: PT D/C HOME VIA W/C WITH FAMILY, DX WITH POST-PROCEDURAL PAIN. bp Vital Signs: 13:13 BP 120 / 74; Pulse 110; Resp 18; Temp 96.8(TE); Pulse Ox 100% on R/A; Weight 97.52 kg; hj Height 5 ft. 4 in. (162.56 cm); Pain 10/10; 14:06 BP 112 / 68; Pulse 60; Resp 16; Pulse Ox 96% ; bp 15:25 BP 101 / 60; Pulse 60; Resp 16; Temp 98; Pulse Ox 98% ; bp 13:13 Body Mass Index 36.90 (97.52 kg, 162.56 cm) hj ED Course: 13:05 Patient arrived in ED. as 13:12 Triage completed. hj 13:12 Arm band placed on left wrist. hj 13:28 Aiden Hernandez, RN is Primary Nurse. bp 13:32 Patient has correct armband on for positive identification. Bed in low position. Call bp light in reach. Side rails up X2. Adult w/ patient. 13:32 Inserted saline lock: 20 gauge in right antecubital area, using aseptic technique. bp Blood collected. 13:40 James Jacome MD is Attending Physician. gs 13:50 CT Stone Protocol In Process Unspecified. EDMS 15:07 Leandro Hadley MD is Referral Physician. gs 15:25 No provider procedures requiring assistance completed. IV discontinued, intact, bp bleeding controlled, No redness/swelling at site. Pressure dressing applied. Administered Medications: 14:46 Drug: TORadol - Ketorolac 15 mg Route: IVP; Site: right antecubital; bp 15:12 Follow up: Response: Pain is decreased bp 15:15 Drug: Hydrocodone-Acetaminophen (7.5 mg-325 mg) 1 tabs Route: PO; bp 15:24 Follow up: Response: No adverse reaction; Pain is decreased bp Outcome: 15:08 Discharge ordered by . gs 15:25 Discharged to home via wheelchair, with family. bp 15:25 Condition: stable 15:25 Discharge instructions given to patient, Instructed on discharge instructions, follow up and referral plans. Demonstrated understanding of instructions, follow-up care. 15:27 Patient left the ED. bp Signatures: Dispatcher [employer] Margarita Pinedo Henry RN RN hj James Jacome MD MD gs Peltier, Brian, RN RN bp Corrections: (The following items were deleted from the chart) 13:14 13:13 Temp 96.8F Temporal; 97.52 kg; Height 5 ft. 4 in.; BMI: 36.9; Pain 01/19; hj sha
--- NOTE | 2018-10-25 15:08 | EDPHYS ---
Physician Documentation [facility] Name: Maira Scherer Age: 28 yrs Sex: Female : 1990 Arrival Date: 10/25/2018 Time: 13:05 Bed 17 Private MD: ED Physician James Jacome HPI: 10/25 15:22 This 28 yrs old Female presents to ER via Ambulatory with complaints of gs Possible Kidney Stone. 15:22 The patient presents with abdominal pain in the lower abdomen. Onset: The gs symptoms/episode began/occurred acutely, after having urinary stent placed today pain afterwards. Associated signs and symptoms: Pertinent negatives: nausea, vomiting, and diarrhea. The symptoms are described as sharp. Modifying factors: The symptoms are alleviated by nothing, the symptoms are aggravated by nothing. Severity of pain: At its worst the pain was severe in the emergency department the pain has improved markedly. The patient has not experienced similar symptoms in the past. The patient has been recently seen by a physician: Dr. hadley. 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 - Social history:: Smoking status: Patient/guardian denies using tobacco, The patient lives at home. - Ebola Screening: : No symptoms or risks identified at this time. ROS: 15:22 All other systems are negative. gs Exam: 15:22 Head/Face: Normocephalic, atraumatic. Eyes: Pupils equal round and reactive to light, gs extra-ocular motions intact. Lids and lashes normal. Conjunctiva and sclera are non-icteric and not injected. Cornea within normal limits. Periorbital areas with no swelling, redness, or edema. ENT: Nares patent. No nasal discharge, no septal abnormalities noted. Tympanic membranes are normal and external auditory canals are clear. Oropharynx with no redness, swelling, or masses, exudates, or evidence of obstruction, uvula midline. Mucous membranes moist. Neck: Trachea midline, no thyromegaly or masses palpated, and no cervical lymphadenopathy. Supple, full range of motion without nuchal rigidity, or vertebral point tenderness. No Meningismus. Chest/axilla: Normal chest wall appearance and motion. Nontender with no deformity. No lesions are appreciated. Cardiovascular: Regular rate and rhythm with a normal S1 and S2. No gallops, murmurs, or rubs. Normal PMI, no JVD. No pulse deficits. Respiratory: Lungs have equal breath sounds bilaterally, clear to auscultation and percussion. No rales, rhonchi or wheezes noted. No increased work of breathing, no retractions or nasal flaring. Abdomen/GI: Soft, non-tender, with normal bowel sounds. No distension or tympany. No guarding or rebound. No evidence of tenderness throughout. Back: No spinal tenderness. No costovertebral tenderness. Full range of motion. Skin: Warm, dry with normal turgor. Normal color with no rashes, no lesions, and no evidence of cellulitis. MS/ Extremity: Pulses equal, no cyanosis. Neurovascular intact. Full, normal range of motion. Neuro: Awake and alert, GCS 15, oriented to person, place, time, and situation. Cranial nerves II-XII grossly intact. Motor strength 5/5 in all extremities. Sensory grossly intact. Cerebellar exam normal. Normal gait. 15:22 Constitutional: The patient appears alert, awake, uncomfortable. Vital Signs: 13:13 BP 120 / 74; Pulse 110; Resp 18; Temp 96.8(TE); Pulse Ox 100% on R/A; Weight 97.52 kg; hj Height 5 ft. 4 in. (162.56 cm); Pain 10/10; 14:06 BP 112 / 68; Pulse 60; Resp 16; Pulse Ox 96% ; bp 15:25 BP 101 / 60; Pulse 60; Resp 16; Temp 98; Pulse Ox 98% ; bp 13:13 Body Mass Index 36.90 (97.52 kg, 162.56 cm) hj MDM: 14:30 Patient medically screened. 15:22 Differential diagnosis: bladder spasm stone post procedure pain. Data reviewed: vital gs signs, nurses notes. Response to treatment: the patient's symptoms have markedly improved after treatment, and as a result, I will discharge patient. 10/25 13:30 Order name: Basic Metabolic Panel; Complete Time: 14:29 bp 10/25 13:30 Order name: CBC with Diff; Complete Time: 14:29 bp 10/25 13:30 Order name: Creatinine for Radiology; Complete Time: 14:29 bp 10/25 13:30 Order name: Hepatic Function; Complete Time: 14:29 bp 10/25 13:30 Order name: Lipase; Complete Time: 14:29 bp 10/25 13:30 Order name: IV Saline Lock; Complete Time: 13:30 bp 10/25 13:30 Order name: CT Stone Protocol; Complete Time: 14:29 bp 10/25 13:47 Order name: CBC Smear Scan; Complete Time: 14:29 EDMS Administered Medications: 14:46 Drug: TORadol - Ketorolac 15 mg Route: IVP; Site: right antecubital; bp 15:12 Follow up: Response: Pain is decreased bp 15:15 Drug: Hydrocodone-Acetaminophen (7.5 mg-325 mg) 1 tabs Route: PO; bp 15:24 Follow up: Response: No adverse reaction; Pain is decreased bp Disposition: 10/25/18 15:08 Discharged to Home. Impression: Other acute postprocedural pain. - Condition is Stable. - Discharge Instructions: Pain Medicine Instructions. - Medication Reconciliation Form, Thank You Letter, Antibiotic Education, Prescription Opioid Use form. - Follow up: Leandro Hadley MD; When: 2 - 3 days; Reason: Re-evaluation by your physician. Signatures: Dispatcher [employer] EDOH Sarthak Rivers, RN RN James Jacome MD MD Aiden Hernandez RN RN bp Corrections: (The following items were deleted from the chart) 15:27 15:08 10/25/2018 15:08 Discharged to Home. Impression: Other acute postprocedural pain. bp Condition is Stable. Forms are Medication Reconciliation Form, Thank You Letter, Antibiotic Education, Prescription Opioid Use. Follow up: Leandro Hadley; When: 2 - 3 days; Reason: Re-evaluation by your physician.
[2018-10-25] MEDS ORDERED: HYDROCODONE/APAP 7.5/325 MG TAB ONE (15:36)
== END 2018-10-25 15:27 | disposition home or self-care (01) ==
LOC: ER 13:04
DX: G89.18 Other acute postprocedural pain (principal); R10.30 Lower abdominal pain, unspecified; F41.9 Anxiety disorder, unspecified; Z88.7 Allergy status to serum and vaccine
CPT/HCPCS: 36415; 74176; 76377; 80048; 80076; 83690; 85025; 96374; 99284

== ENCOUNTER 2019-04-28 07:00 | Emergency (ER) | payer OTHER ==
[2019-04-28] MEDS ORDERED: ONDANSETRON 4 MG/2 ML VIAL ONE (07:26)
[2019-04-28] MEDS ORDERED: NA CHLORIDE 0.9% 1,000 ML ONE (07:26)
[2019-04-28] MEDS ORDERED: KETOROLAC 30 MG/ML INJ ONE (07:26)
[2019-04-28 07:36] LABS: Urine Blood NEGATIVE (NEG); Urine Glucose NEGATIVE (NEG); Urine Protein NEGATIVE (NEG)
[2019-04-28 07:51] LABS: Absolute Lymphocytes (CBC) 2.5 K/uL (0.7-4.9); Basophils % 1.1 % (0-1.3); Lymphocytes % 33.4 % (15.3-44.8); MPV 8.5 fL (7.6-11.3); RBC Red Blood Cell Count 4.45 M/uL (3.86-4.86)
--- NOTE | 2019-04-28 07:58 | RAD REPORT ---
EXAM DESCRIPTION: CT - Stone Protocol - 04/28/2019 7:40 am CLINICAL HISTORY: Abdominal pain. Right flank pain COMPARISON: October 2018 TECHNIQUE: Computed axial tomography of the abdomen pelvis was obtained without oral or IV contrast. Lack of IV and oral contrast limits evaluation of solid organs, bowel, and vessels. Coronal reformat jun images were obtained and reviewed. All CT scans are performed using dose optimization technique as appropriate and may include automated exposure control or mA/KV adjustment according to patient size. FINDINGS: The right ureteral stent has been removed since the prior examination A renal calculus is not seen. An ureteral calculus is not noted. A bladder calculus is not present. At sub centimeter low-density area within the right lobe of the liver is nonspecific but probably rep resents a cyst. , spleen, pancreas and adrenals appear grossly normal There is no evidence of diverticulitis. The appendix appears normal IMPRESSION: Negative for a genitourinary calculus
[2019-04-28 08:03] LABS: ALT/SGPT 23 U/L (12-78); AST/SGOT 16 U/L (15-37); Albumin 3.6 g/dL (3.4-5.0); Alkaline Phosphatase 114 U/L (45-117); BUN Blood Urea Nitrogen 13 mg/dL (7-18); Bicarbonate 28 mmol/L (21-32); Bilirubin Direct 0.1 mg/dL (0-0.2); Bilirubin Total 0.3 mg/dL (0.2-1.0); Glucose Level 97 mg/dL (74-106); Lipase 154 U/L (73-393); Potassium 3.8 mmol/L (3.5-5.1); Protein, Total 6.9 g/dL (6.4-8.2); Sodium Level 140 mmol/L (136-145)
--- NOTE | 2019-04-28 08:19 | ER ---
Nurse's Notes [facility] Name: Maira Scherer Age: 29 yrs Sex: Female : 1990 Arrival Date: 04/28/2019 Time: 07:01 Bed 5 Private MD: Diagnosis: Hydronephrosis with renal and ureteral calculous obstruction-history of Presentation: 04/28 07:04 Presenting complaint: Patient states: right low back pain radiating to RLQ that began aa5 yesterday. Pt denies N/V/D. 07:04 Transition of care: patient was not received from another setting of care. Onset of aa5 symptoms was April 2019. Risk Assessment: Do you want to hurt yourself or someone else? Patient reports no desire to harm self or others. Initial Sepsis Screen: Does the patient meet any 2 criteria? No. Patient's initial sepsis screen is negative. Does the patient have a suspected source of infection? No. Patient's initial sepsis screen is negative. Care prior to arrival: None. 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 - Social history:: Smoking status: Patient/guardian denies using tobacco. - Ebola Screening: : No symptoms or risks identified at this time. - Family history:: not pertinent. Screenin:21 Abuse screen: Denies threats or abuse. Nutritional screening: No deficits noted. aa5 Tuberculosis screening: No symptoms or risk factors identified. Fall Risk None identified. Assessment: 07:10 General: Appears comfortable, Behavior is calm, cooperative. Pain: Complains of pain in aa5 right low back Pain radiates to right lower quadrant Pain currently is 4 out of 10 on a pain scale. Quality of pain is described as aching, sharp, Pain began 1 day ago. Is intermittent. Neuro: Level of Consciousness is awake, alert, obeys commands, Oriented to person, place, time, situation. Cardiovascular: Heart tones S1 S2 present Rhythm is regular. Respiratory: Airway is patent Respiratory effort is even, unlabored, Respiratory pattern is regular, symmetrical. GI: Abdomen is round non-distended, Bowel sounds present X 4 quads. Abd is soft and non tender X 4 quads. Patient currently denies diarrhea, nausea, vomiting. : Reports urinary frequency, Denies burning with urination. EENT: No signs and/or symptoms were reported regarding the EENT system. Derm: Skin is pink, warm \T\ dry. Musculoskeletal: Range of motion: intact in all extremities. 08:34 Reassessment: pending completion of IV fluids prior to discharge. em Vital Signs: 07:12 BP 118 / 72; Pulse 87; Resp 18 S; Temp 98.5(O); Pulse Ox 98% on R/A; Weight 99.79 kg aa5 (R); Height 5 ft. 4 in. (162.56 cm) (R); Pain 4/10; 08:33 BP 108 / 62; Pulse 67; Resp 16; Pulse Ox 100% on R/A; Pain 2/10; em 07:12 Body Mass Index 37.76 (99.79 kg, 162.56 cm) aa5 ED Course: 07:01 Patient arrived in ED. ds1 07:04 Ronald López MD is Attending Physician. ninfa 07:04 Arm band placed on Patient placed in an exam room, on a stretcher. aa5 07:04 Patient has correct armband on for positive identification. Bed in low position. Call aa5 light in reach. Side rails up X 1. 07:18 Umm Johnson, TALIB is Primary Nurse. aa5 07:20 Triage completed. aa5 07:30 Initial lab(s) drawn, by ks, sent to lab. Inserted saline lock: 22 gauge in right em antecubital area, using aseptic technique. Blood collected. 07:39 CT Stone Protocol In Process Unspecified. EDMS 08:18 Leandro Hadley MD is Referral Physician. ninfa 08:29 No provider procedures requiring assistance completed. em 08:53 IV discontinued, intact, bleeding controlled, No redness/swelling at site. Pressure em dressing applied. Administered Medications: 07:35 Drug: NS 0.9% 1000 ml Route: IV; Rate: 1 bolus; Site: right antecubital; em 08:53 Follow up: IV Status: Completed infusion; IV Intake: 1000ml em 07:35 Drug: TORadol 30 mg Route: IVP; Site: right antecubital; em 08:33 Follow up: Response: No adverse reaction; Pain is decreased em 08:27 Not Given (Patient Refused): Zofran 4 mg IVP once; over 2 minutes em Intake: 08:53 IV: 1000ml; Total: 1000ml. em Outcome: 08:18 Discharge ordered by . ninfa 08:53 Discharged to home ambulatory, with family. em 08:53 Condition: good 08:53 Discharge instructions given to patient, Instructed on discharge instructions, follow up and referral plans. no drinking with medication, no driving heavy equipment, medication usage, Demonstrated understanding of instructions, follow-up care, medications, Prescriptions given X 1. 08:54 Patient left the ED. em Signatures: Dispatcher [employer] Ronald Del Cid MD MD cha Munoz, Edgar RN RN em HarmonCrowderi ds1 Umm Johnson RN RN [email or web address] Nori Waggoner, TALIB MAYERS vc Corrections: (The following items were deleted from the chart) 07:19 07:05 Nori Waggoner RN is Primary Nurse. aa5 07:19 07:18 Primary Nurse role handed off by Nori Waggoner RN aa5 aa5 07:52 07:38 Zofran 4 mg IVP in right antecubital em em
--- NOTE | 2019-04-28 08:19 | EDPHYS ---
Physician Documentation [facility] Name: Maira Scherer Age: 29 yrs Sex: Female : 1990 Arrival Date: 04/28/2019 Time: 07:01 Bed 5 Private MD: ED Physician Ronald López HPI: 04/28 07:22 This 29 yrs old Female presents to ER via Ambulatory with complaints of Back ninfa Pain. 07:22 The patient presents with pain that is acute, with no known mechanism of injury. The ninfa symptoms are located in the right mid back and right low back. Onset: The symptoms/episode began/occurred 1 day(s) ago. The pain radiates to the right mid back and right low back. Associated signs and symptoms: The patient has no apparent associated signs or symptoms. Modifying factors: The patient symptoms are alleviated by nothing, the patient symptoms are aggravated by nothing. Severity of symptoms: At their worst the symptoms were moderate, in the emergency department the symptoms are unchanged. The patient has experienced a previous episode, last month. 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 - Social history:: Smoking status: Patient/guardian denies using tobacco. - Ebola Screening: : No symptoms or risks identified at this time. - Family history:: not pertinent. ROS: 07:22 Constitutional: Negative for fever, chills, and weight loss, Eyes: Negative for injury, ninfa pain, redness, and discharge, ENT: Negative for injury, pain, and discharge, Neck: Negative for injury, pain, and swelling, Cardiovascular: Negative for chest pain, palpitations, and edema, Respiratory: Negative for shortness of breath, cough, wheezing, and pleuritic chest pain, Abdomen/GI: Negative for abdominal pain, nausea, vomiting, diarrhea, and constipation, : Negative for injury, bleeding, discharge, and swelling, MS/Extremity: Negative for injury and deformity, Skin: Negative for injury, rash, and discoloration, Neuro: Negative for headache, weakness, numbness, tingling, and seizure, Psych: Negative for depression, anxiety, suicide ideation, homicidal ideation, and hallucinations, Allergy/Immunology: Negative for hives, rash, and allergies, Endocrine: Negative for neck swelling, polydipsia, polyuria, polyphagia, and marked weight changes, Hematologic/Lymphatic: Negative for swollen nodes, abnormal bleeding, and unusual bruising. 07:22 Back: Positive for flank pain, on the right. Exam: 07:22 Constitutional: This is a well developed, well nourished patient who is awake, alert, ninfa and in no acute distress. Head/Face: Normocephalic, atraumatic. Eyes: Pupils equal round and reactive to light, extra-ocular motions intact. Lids and lashes normal. Conjunctiva and sclera are non-icteric and not injected. Cornea within normal limits. Periorbital areas with no swelling, redness, or edema. ENT: Nares patent. No nasal discharge, no septal abnormalities noted. Tympanic membranes are normal and external auditory canals are clear. Oropharynx with no redness, swelling, or masses, exudates, or evidence of obstruction, uvula midline. Mucous membranes moist. Neck: Trachea midline, no thyromegaly or masses palpated, and no cervical lymphadenopathy. Supple, full range of motion without nuchal rigidity, or vertebral point tenderness. No Meningismus. Chest/axilla: Normal chest wall appearance and motion. Nontender with no deformity. No lesions are appreciated. Cardiovascular: Regular rate and rhythm with a normal S1 and S2. No gallops, murmurs, or rubs. Normal PMI, no JVD. No pulse deficits. Respiratory: Lungs have equal breath sounds bilaterally, clear to auscultation and percussion. No rales, rhonchi or wheezes noted. No increased work of breathing, no retractions or nasal flaring. Abdomen/GI: Soft, non-tender, with normal bowel sounds. No distension or tympany. No guarding or rebound. No evidence of tenderness throughout. Skin: Warm, dry with normal turgor. Normal color with no rashes, no lesions, and no evidence of cellulitis. MS/ Extremity: Pulses equal, no cyanosis. Neurovascular intact. Full, normal range of motion. Neuro: Awake and alert, GCS 15, oriented to person, place, time, and situation. Cranial nerves II-XII grossly intact. Motor strength 5/5 in all extremities. Sensory grossly intact. Cerebellar exam normal. Normal gait. Psych: Awake, alert, with orientation to person, place and time. Behavior, mood, and affect are within normal limits. 07:22 Back: pain, is absent, ROM is normal, normal spinal alignment noted, CVA tenderness, is absent. Vital Signs: 07:12 BP 118 / 72; Pulse 87; Resp 18 S; Temp 98.5(O); Pulse Ox 98% on R/A; Weight 99.79 kg aa5 (R); Height 5 ft. 4 in. (162.56 cm) (R); Pain 4/10; 08:33 BP 108 / 62; Pulse 67; Resp 16; Pulse Ox 100% on R/A; Pain 2/10; em 07:12 Body Mass Index 37.76 (99.79 kg, 162.56 cm) aa5 MDM: 07:06 Patient medically screened. [facility] 07:25 Data reviewed: vital signs, nurses notes, lab test result(s), radiologic studies, CT ninfa scan. 04/28 07:19 Order name: Urine Dipstick--Ancillary (enter results); Complete Time: 08:16 em 04/28 07:19 Order name: Urine --Ancillary (enter results); Complete Time: 08:16 em 04/28 07:22 Order name: Basic Metabolic Panel [facility] 04/28 07:22 Order name: CBC with Diff; Complete Time: 08:16 [facility] 04/28 07:22 Order name: Creatinine for Radiology; Complete Time: 08:16 [facility] 04/28 07:22 Order name: Hepatic Function; Complete Time: 08:16 ninfa 04/28 07:22 Order name: Lipase; Complete Time: 08:16 ninfa 04/28 07:22 Order name: IV Saline Lock; Complete Time: 07:36 [facility] 04/28 07:22 Order name: Labs collected and sent; Complete Time: 07:36 ninfa 04/28 07:22 Order name: CT Stone Protocol; Complete Time: 08:16 ninfa 04/28 07:22 Order name: Basic Metabolic Panel; Complete Time: 08:16 EDMS 04/28 07:23 Order name: Urine Dipstick-Ancillary (obtain specimen); Complete Time: 07:23 aa5 04/28 07:23 Order name: Urine Test (obtain specimen); Complete Time: :23 aa5 Administered Medications: 07:35 Drug: NS 0.9% 1000 ml Route: IV; Rate: 1 bolus; Site: right antecubital; em 08:53 Follow up: IV Status: Completed infusion; IV Intake: 1000ml em 07:35 Drug: TORadol 30 mg Route: IVP; Site: right antecubital; em 08:33 Follow up: Response: No adverse reaction; Pain is decreased em 08:27 Not Given (Patient Refused): Zofran 4 mg IVP once; over 2 minutes em Disposition: 04/28/19 08:18 Discharged to Home. Impression: Hydronephrosis with renal and ureteral calculous obstruction - history of. - Condition is Stable. - Discharge Instructions: Kidney Stones, Kidney Stones, [id number]. - Prescriptions for Tylenol- Codeine #3 300-30 mg Oral Tablet - take 2 tablets by ORAL route every 6 hours As needed; 20 tablet. - Medication Reconciliation Form, Thank You Letter, Antibiotic Education, Prescription Opioid Use form. - Follow up: Private Physician; When: 2 - 3 days; Reason: Recheck today's complaints, Continuance of care, Re-evaluation by your physician. Follow up: Leandro Hadley; When: 2 - 3 days; Reason: Recheck today's complaints, Continuance of care, Re-evaluation by your physician. - Problem is new. - Symptoms have improved. Signatures: Dispatcher [employer] EDRonald Whitt MD MD cha Munoz, Edgar RN RN Umm Johnson RN RN aa5 Corrections: (The following items were deleted from the chart) 08:54 08:18 04/28/2019 08:18 Discharged to Home. Impression: Hydronephrosis with renal and em ureteral calculous obstruction - history of. Condition is Stable. Discharge Instructions: Kidney Stones, Kidney Stones, [id number]. Prescriptions for Tylenol-Codeine #3 300-30 mg Oral Tablet - take 2 tablets by ORAL route every 6 hours As needed; 24 tablet. and Forms are Medication Reconciliation Form, Thank You Letter, Antibiotic Education, Prescription Opioid Use. Follow up: Private Physician; When: 2 - 3 days; Reason: Recheck today's complaints, Continuance of care, Re-evaluation by your physician. Follow up: Leandro Hadley; When: 2 - 3 days; Reason: Recheck today's complaints, Continuance of care, Re-evaluation by your physician. Problem is new. Symptoms have improved. ninfa
[2019-04-28 09:03] VITALS: TEMP 98.5
[2019-04-28 09:04] VITALS: BP 108/62; O2SAT 100
== END 2019-04-28 08:54 | disposition home or self-care (01) ==
LOC: ER 07:00
DX: N13.2 Hydronephrosis with renal and ureteral calculous obstruction (principal); F41.9 Anxiety disorder, unspecified; Z87.442 Personal history of urinary calculi; Z88.7 Allergy status to serum and vaccine
CPT/HCPCS: 96361; 85025; 80048; 36415; 81025; 80076; 81003; 83690; 76377; 74176; 96374; 99284; J7030; J2405